=== PATIENT | female | born 1970 | race Caucasian/White ===

== ENCOUNTER 2019-04-24 09:59 | Outpatient (CLI) | payer BC, SELFPAY ==
--- NOTE | ~2019-04-24 | XR_ITS ---
XR chest 2V DATE: 04/24/2019 10:18 INDICATION: Pneumonia TECHNIQUE: PA and lateral views COMPARISON: 04/01/2019 PA and lateral views FINDINGS: Normal heart size. No hilar or mediastinal enlargement. No pulmonary infiltrate or consoli dation, pulmonary vascular congestion, pleural effusion or pneumothorax is detected. IMPRESSION: No active cardiopulmonary disease; resolution of left perihilar infiltrates since 04/01/19 20 Reviewed, dictated and finalized at location B. LATHE OPERATOR IMPRESSION: No active cardiopulmonary disease; resolution of left perihilar inf iltrates since 04/01/2019
== END 2019-04-24 10:00 | disposition home or self-care (01) ==
LOC: ANHIMG 10:06
PROVIDERS: PCP Family Medicine; Visit Provider Nurse Practitioner Family
DX: J18.9 Pneumonia, unspecified organism (principal)
CPT/HCPCS: 71046

== ENCOUNTER → 2020-11-03 08:46 | Outpatient (CLI) | payer BC, SELFPAY ==
--- NOTE | ~2020-11-03 | US_ITS ---
EXAMINATION: US soft tissue head and neck DATE: 11/03/2020 09:10 INDICATION: Localized enlarged right submandibular lymph nodes TECHNIQUE: Multiple grayscale and Doppler ultrasound images of the right submandibular region of conc salvatore were obtained. COMPARISON: None FINDINGS: Normal-sized 10 x 5 x 10 mm right submandibular lymph node with central fatty hilum at the region of concern. No other pathologically enlarged lymph nodes or other abnormal masses or fluid collections i dentified. Visualized portion of the adjacent right submandibular gland is unremarkable. IMPRESSION: 1. Normal study with normal sized 10 x 5 x 10 mm right submandibular lymph node at the region of conc salvatore. Reviewed, dictated and finalized at location A. IMPRESSION: 1. Normal study with normal sized 10 x 5 x 10 mm right submandibular lymph node at the region of concern.
--- NOTE | ~2020-11-03 | US_ITS ---
EXAMINATION: US axilla RT INDICATION: Right axillary tenderness and lymphadenopathy TECHNIQUE: Targeted ultrasound of the right axilla was performed. COMPARISON: None available FINDINGS: There are normal-appearing lymph nodes in the right axilla. No lymphadenopathy or abnormal cystic or solid mass is identified. IMPRESSION: 1. No axillary lymphadenopathy. BI-RADS Category 1: Negative Reviewed, dictated and finalized at location A.
== END ==
PROVIDERS: PCP Family Medicine; Visit Provider Nurse Practitioner Family
DX: R59.0 Localized enlarged lymph nodes (principal)
CPT/HCPCS: 76536; 76882